=== PATIENT | female | born 1950 | race Caucasian/White ===

== ENCOUNTER → 2021-02-19 | Outpatient (CLI) | payer MEDICARE, OTHER | LOC: KOH-I 08:11 | DX: K76.0 Fatty (change of) liver, not elsewhere classified (principal); M25.552 Pain in left hip; K80.20 Calculus of gallbladder without cholecystitis without obstruction; M16.12 Unilateral primary osteoarthritis, left hip | CPT/HCPCS: 73502; 76705 ==